=== PATIENT | female | born 1960 | race Caucasian/White ===

== ENCOUNTER → 2016-11-25 | Day surgery (SDC) | payer OTHER ==
[~2016-11-25] VITALS: Ht 162.6 cm; Wt 90.9 kg
[~2016-11-25] MED LIST: ATOR-24 PO; CITA10TA4 PO; CLON0.5T3 PO; LIDOCAINE HCL 2% 2 ML VIAL (20MG/ML) ONE; MIDAZOLAM HCL 1 MG/ML 2ML VIAL ONE; PROPOFOL IV EMULSION 10 MG/ML 20 ML VIAL IV ONE
[2016-11-25 10:08] VITALS: Ht 162.6 cm; Wt 90.9 kg
[2016-11-25 10:19] VITALS: TEMP 36.5
--- NOTE | 2016-11-25 10:19 | Endo History and Physical ---
History & Physical Date of Service: Nov 25, 2016. Chief Complaint: Hx polyp Referring Physician: Dr. Carter History of Present Illness 56 yo CF who presents for colonoscopy secondary to history of polyps. Past Surgical History Hx Cardiac Surgery: No Hx Internal Defibrillator: No Hx Pacemaker: No Hx Abdominal Surgery: No Hx of Implantable Prosthesis: No Hx Post-Op Nausea and Vomiting: No Hx Cancer Surgery: No Hx Thoracic Surgery: No Hx Orthopedic: Yes (RT SHOULDER SURGERY) Hx Urinary Tract Surgery: No Family History None Social History Smoking Status: Never Smoker Hx Substance Use: No Hx Alcohol Use: Yes (OCCASIONAL) Allergies Coded Allergies: No Known Allergies (Verified , 11/25/16) Current Medications Reported Home Medications Medications Dose Route/Sig Max Daily Dose Days Date Category Citalopram Hydrobromide 10 Mg Tab 1 Tab PO HS 11/06/16 Reported Klonopin (Clonazepam) 0.5 Mg Tab 0.5 Mg PO BID PRN 11/06/16 Reported Lipitor (Atorvastatin Calcium) 40 Mg Tab 40 Mg PO HS 11/06/16 Reported Vital Signs Weight (Kilograms): 90.91 Height (Feet): 5 Height (Inches): 4 Physical Exam General Appearance: WD/WN, no apparent distress Respiratory/Chest: Auscultation: breath sounds normal Cardiovascular: Heart Auscultation: RRR Abdomen: Bowel Sounds: normal Inspection & Palpation: soft, non-distended, no tenderness, guarding & rebound Assessment and Plan Assessment: 56 yo CF who presents for colonoscopy secondary to history of polyps. Plan: Proceed with colonoscopy.
--- NOTE | 2016-11-25 11:06 | Discharge Instructions ---
Endoscopy Patient Instructions Date / Procedure(s) Performed Nov 25, 2016. Colonoscopy Allergy Information Coded Allergies: No Known Allergies (Verified , 11/25/16) Discharge Date / Findings Nov 25, 2016. Rectal polyp Internal hemorrhoids Provider Instructions Activity Restrictions - No exercising or heavy lifting for 24 hours. - Do not drink alcohol the day of the procedure. - Do not drive a car or operate machinery until the day after the procedure. - Do not make any important decisions or sign important papers in 24 hours after the procedure. Following Day: - Return to full activity which may include returning to work/school. Diet Start your diet with liquids and light foods (jello, soup, juice, toast). Then eat your usual diet if not nauseated. Treatment For Common After Affects For mild abdominal pain, bloating, or excessive gas: - Rest - Eat lightly - Lie on right side Follow-Up Information Follow-up with Dr. Carter as scheduled Anesthesia Information What You Should Know You have had a procedure that required some medicine to reduce anxiety and discomfort. This treatment is called moderate sedation. After receiving the treatment, you may be sleepy, but you will be able to breathe on your own. The effects of the treatment may last for several hours. Follow these instructions along with Activity/Diet recommendations noted above: * Do NOT do anything where dizziness or clumsiness would be dangerous. * Rest quietly at home today, then you can be up and about tomorrow. * Have a responsible person stay with you the rest of today. * You may have had an I.V. today. If so, you may take the dressing off later today. Recommendations Call your doctor if: * Trouble breathing * Continuous vomiting for more than 24 hours * Temperature above 101 degrees * Severe abdominal pain or bloating * Pain not relieved by pain medicine ordered * There is increased drainage or redness from any incision * A large amount of rectal bleeding greater than 2-3 tablespoons. (If you had a polyp/s removed or have hemorrhoids, a small amount of blood - from the rectum is to be expected.) * You have any unanswered questions or concerns. IN THE EVENT OF A SERIOUS EMERGENCY, GO TO THE NEAREST EMERGENCY ROOM Your discharge instructions were prepared by provider Pa Kwok. Patient Instructions Signature Page Cristel Parra Patient (or Guardian) Signature/Date: I have read and understand the instructions given to me by my caregivers. Caregiver/RN/Doctor Signature/Date: The above-named patient and/or guardian has received patient instructions on this date. + Original Patient Signature Page (only) stays with chart. Please make copy for patient.
--- NOTE | 2016-11-25 11:15 | GI REPORT ---
Procedure Date: 11/25/2016 10:42 AM Procedure: Colonoscopy Indications: High risk colon cancer surveillance: Personal history of colonic polyps Medicines: Monitored Anesthesia Care Complications: No immediate complications. Estimated Blood Loss: Estimated blood loss: none. Procedure: Pre-Anesthesia Assessment: - Prior to the procedure, a History and Physical was performed, and patient medications and allergies were reviewed. The patient's tolerance of previous anesthesia was also reviewed. The risks and benefits of the procedure and the sedation options and risks were discussed with the patient. All questions were answered, and informed consent was obtained. Prior Anticoagulants: The patient has taken no previous anticoagulant or antiplatelet agents. ASA Grade Assessment: II - A patient with mild systemic disease. After reviewing the risks and benefits, the patient was deemed in satisfactory condition to undergo the procedure. After I obtained informed consent, the scope was passed under direct vision. Throughout the procedure, the patient's blood pressure, pulse, and oxygen saturations were monitored continuously. The Scope was introduced through the anus and advanced to the terminal ileum. The colonoscopy was performed without difficulty. The patient tolerated the procedure well. The quality of the bowel preparation was good. The terminal ileum, ileocecal valve, appendiceal orifice, and rectum were photographed. Findings: A 3 mm polyp was found in the rectum. The polyp was sessile. The polyp was removed with a cold snare. Resection and retrieval were complete. Non-bleeding internal hemorrhoids were found during retroflexion. The hemorrhoids were small. Impression: - One 3 mm polyp in the rectum, removed with a cold snare. Resected and retrieved. - Non-bleeding internal hemorrhoids. Recommendation: - Resume previous diet. - Continue present medications. - Repeat colonoscopy for surveillance based on pathology results. - Return to primary care physician as previously scheduled. Pa Kwok DO 11/25/2016 11:14:40 AM This report has been signed electronically. Note Initiated On: 11/25/2016 10:42 AM
[2016-11-25 11:36] VITALS: BP 125/79; PULSE 81; O2SAT 99
--- NOTE | 2016-11-25 12:10 | Anesthesiology Progress Note ---
Anesthesia Post Op Note Date & Time Nov 25, 2016 at 12:09 Vital Signs Pain Intensity: 0 Vital Signs Past 12 Hours Date Time Temp Pulse Resp B/P Pulse Ox O2 Delivery O2 Flow Rate FiO2 11/25/16 11:36 81 20 125/79 99 Room Air 11/25/16 11:19 80 20 107/52 97 Room Air 11/25/16 11:04 80 20 99/57 95 Room Air 11/25/16 10:19 36.5 82 18 125/65 97 Room Air Notes Mental Status: alert / awake / arousable Nausea / Vomiting: adequately controlled Pain: adequately controlled Airway Patency, RR, SpO2: stable & adequate BP & HR: stable & adequate Hydration State: stable & adequate Anesthetic Complications: no major complications apparent
== END | disposition home or self-care (01) ==
LOC: C.GI 10:02
PROVIDERS: ATTEND Internal Medicine
DX: Z12.11 Encounter for screening for malignant neoplasm of colon (principal); Z86.010 Personal history of colon polyps; K62.1 Rectal polyp; K64.8 Other hemorrhoids

== ENCOUNTER → 2017-02-18 | Outpatient (CLI) | payer OTHER ==
[~2017-02-18] MED LIST changes: -LIDOCAINE HCL 2% 2 ML VIAL (20MG/ML) ONE; -MIDAZOLAM HCL 1 MG/ML 2ML VIAL ONE; -PROPOFOL IV EMULSION 10 MG/ML 20 ML VIAL IV ONE
--- NOTE | 2017-02-18 15:55 | MAMMOGRAPHY REPORT ---
BILATERAL DIGITAL SCREENING MAMMOGRAM TOMOSYNTHESIS WITH CAD: 02/18/2017 CLINICAL HISTORY: Routine screening. Patient has no complaints. TECHNIQUE: Breast tomosynthesis in addition to standard 2D mammography was performed. Current study was also evaluated with a Computer Aided Detection (CAD) system. COMPARISON: Comparison is made to exams dated: 02/15/2016 mammogram, 09/13/2014 mammogram, 08/03/2013 mammogram, 08/02/2012 mammogram, 07/31/2011 mammogram, and 06/26/2010 mammogram - [facility]. BREAST COMPOSITION: The tissue of both breasts is almost entirely fatty. FINDINGS: There are stable lymph nodes projecting in each axillary region and stable intramammary ly mph nodes in the left upper outer posterior breast. No new suspicious mass, architectural distortio n or cluster of microcalcifications is seen. IMPRESSION: ACR BI-RADS CATEGORY 1: NEGATIVE There is no mammographic evidence of malignancy. A 1 year screening mammogram is recommended. The p atient will receive written notification of the results. Approximately 10% of breast cancers are not detected with mammography. A negative mammographic repor t should not delay biopsy if a clinically suggestive mass is present. Obdulia Parish M.D. ay/:02/18/2017 13:45:51 Global Project Manager: Yaz RICK)(Joanne), [facility] letter sent: Normal 1/2 BI-RADS Code: ACR BI-RADS Category 1: Negative
== END | disposition home or self-care (01) ==
LOC: C.MAMM 08:56
PROVIDERS: ATTEND Internal Medicine
DX: Z12.31 Encounter for screening mammogram for malignant neoplasm of breast (principal)

== ENCOUNTER → 2017-04-01 | Outpatient (CLI) | payer OTHER ==
[2017-04-01 12:09] LABS: BASO % 0.9 %; BASO ABS # 0.06 K/uL (0-0.2); COMPLETE YES; EOS % 1.5 %; IG% 0.2 %; LYMPH % 32.2 %; LYMPH ABS # 2.11 K/uL (1.2-3.4); MEAN CELL VOLUME 85.8 fL (80-100); MEAN CORPUSCULAR HEMOGLOBIN 27.7 pg (25-34); MEAN CORPUSCULAR HGB CONC 32.3 g/dl (32-36); MEAN PLATELET VOLUME 11.2 fL (7.4-10.4); MONO % 6.4 %; NEUT % 58.8 %; PLATELET COUNT 251 K/uL (130-400); RED BLOOD COUNT 5.13 M/uL (4.2-5.4); WHITE BLOOD COUNT 6.56 K/uL (4.8-10.8)
[2017-04-01 12:12] LABS: URINE APPEARANCE CLEAR (CLEAR); URINE BILIRUBIN NEG (NEG); URINE COLOR YELLOW; URINE NITRITE NEG (NEG); URINE SPECIFIC GRAVITY 1.012 (1.000-1.030); UROBILINOGEN NEG (NEG); ZZUR CULT IF INDIC CLEAN CATCH NO
[2017-04-01 12:14] LABS: MANUAL MICROSCOPIC REQUIRED? NO; REVIEW REQ? NO
[2017-04-01 12:33] LABS: ESTIMATED AVERAGE GLUCOSE 117 mg/dl; HA1C FLAG Normal (Normal)
[2017-04-01 13:35] LABS: ALB/GLOB RATIO 1.3 (0.9-2); ALT/SGPT 26 U/L (12-78); AST/SGOT 14 U/L (15-37); BLOOD UREA NITROGEN 20 mg/dl (7-18); BUN/CREATININE RATIO 31.3 (10-20); CARBON DIOXIDE 25 mmol/L (21-32); CHLORIDE 109 mmol/L (98-107); CREATININE 0.64 mg/dl (0.60-1.20); GLUCOSE 92 mg/dl (70-99); HDL CHOLESTEROL 48 mg/dl; SODIUM 141 mmol/L (136-145)
[2017-04-01 13:36] LABS: ALKALINE PHOSPHATASE 76 U/L (45-117); CHOLESTEROL 157 mg/dl (0-200); CHOLESTEROL/HDL RATIO 3.3; LDL CHOLESTEROL CALCULATED 89 mg/dl; TRIGLYCERIDES 98 mg/dl (0-150); VERY LOW DENSITY LIPOPROT CALC 20 mg/dl
== END | disposition home or self-care (01) ==
LOC: C.LABBFT 08:30
PROVIDERS: ATTEND Internal Medicine
DX: M85.80 Other specified disorders of bone density and structure, unspecified site (principal); D12.6 Benign neoplasm of colon, unspecified; R73.03 Prediabetes; E78.5 Hyperlipidemia, unspecified

== ENCOUNTER → 2017-06-24 | Outpatient (CLI) | payer OTHER | END | disposition home or self-care (01) | LOC: C.PAPS 15:14 | PROVIDERS: ATTEND Nurse Practitioner | DX: Z00.00 Encounter for general adult medical examination without abnormal findings (principal) ==

== ENCOUNTER → 2017-07-01 | Outpatient (CLI) | payer OTHER ==
--- NOTE | 2017-07-01 12:20 | DIAGNOSTIC IMAGING REPORT ---
TRANS VAG-FEMALE PELVIS HISTORY: Vaginal bleeding N92.0 Vaginal [id number] COMPARISON: None. FINDINGS: Uterus: Maximum dimension 7.7 cm. Myometrial in homogeneity. 9 mm uterine fibroid. Endometrial stripe: 5 mm Right ovary: Not seen presumably due to atrophy. Left ovary: Not seen presumably due to atrophy Miscellaneous:No pelvic free fluid. IMPRESSION: Mild fibroid-type uterus with a well-defined 9 mm fibroid. No large fibroids. Nonvisualization of the ovaries presumably due to atrophy. The above report was generated using voice recognition software. It may contain grammatical, syntax or spelling errors. Electronically signed by: Abundio Simon M.D. 07/01/2017 12:19 PM Dictated Date/Time: 07/01/2017 12:17 PM
--- NOTE | 2017-07-01 13:29 | DIAGNOSTIC IMAGING REPORT ---
TRANS VAG-FEMALE PELVIS HISTORY: Vaginal bleeding N92.0 Vaginal [id number] COMPARISON: None. FINDINGS: Uterus: Maximum dimension 7.7 cm. Myometrial in homogeneity. 9 mm uterine fibroid. Endometrial stripe: 5 mm Right ovary: Not seen presumably due to atrophy. Left ovary: Not seen presumably due to atrophy Miscellaneous:No pelvic free fluid. IMPRESSION: Mild fibroid-type uterus with a well-defined 9 mm fibroid. No large fibroids. Nonvisualization of the ovaries presumably due to atrophy. The above report was generated using voice recognition software. It may contain grammatical, syntax or spelling errors. Electronically signed by: Abundio Simon M.D. 07/01/2017 12:19 PM Dictated Date/Time: 07/01/2017 12:17 PM
== END | disposition home or self-care (01) ==
LOC: C.ULTR 11:32
PROVIDERS: ATTEND Nurse Practitioner
DX: N92.0 Excessive and frequent menstruation with regular cycle (principal)

== ENCOUNTER → 2017-09-09 | Outpatient (CLI) | payer OTHER ==
[2017-09-09 12:46] LABS: ESTIMATED AVERAGE GLUCOSE 114 mg/dl; HA1C FLAG Normal (Normal)
[2017-09-09 12:54] LABS: BLOOD UREA NITROGEN 13 mg/dl (7-18); CREATININE 0.63 mg/dl (0.60-1.20); GLUCOSE 97 mg/dl (70-99)
[2017-09-09 12:55] LABS: ALT/SGPT 29 U/L (12-78); BUN/CREATININE RATIO 20.2 (10-20); CALCIUM 8.8 mg/dl (8.5-10.1); CARBON DIOXIDE 24 mmol/L (21-32); CHLORIDE 109 mmol/L (98-107); CHOLESTEROL 291 mg/dl (0-200); SODIUM 139 mmol/L (136-145); TRIGLYCERIDES 251 mg/dl (0-150); VERY LOW DENSITY LIPOPROT CALC 50 mg/dl
[2017-09-09 12:58] LABS: ALB/GLOB RATIO 1.1 (0.9-2); ALKALINE PHOSPHATASE 78 U/L (45-117); AST/SGOT 18 U/L (15-37); CHOLESTEROL/HDL RATIO 6.6; HDL CHOLESTEROL 44 mg/dl; LDL CHOLESTEROL CALCULATED 197 mg/dl
== END | disposition home or self-care (01) ==
LOC: C.LAB1850 09:43
PROVIDERS: ATTEND Nurse Practitioner
DX: E78.5 Hyperlipidemia, unspecified (principal); R73.03 Prediabetes; E55.9 Vitamin D deficiency, unspecified

== ENCOUNTER → 2018-02-22 | Outpatient (CLI) | payer OTHER ==
--- NOTE | 2018-02-23 07:47 | MAMMOGRAPHY REPORT ---
BILATERAL DIGITAL SCREENING MAMMOGRAM TOMOSYNTHESIS WITH CAD: 02/22/2018 CLINICAL HISTORY: Routine screening. Patient has no complaints. TECHNIQUE: Breast tomosynthesis in addition to standard 2D mammography was performed. Current study was also evaluated with a Computer Aided Detection (CAD) system. COMPARISON: Comparison is made to exams dated: 02/18/2017 mammogram, 02/15/2016 mammogram, 09/13/2014 mammogram, 08/03/2013 mammogram, 08/02/2012 mammogram, and 07/31/2011 mammogram - [facility]. BREAST COMPOSITION: The tissue of both breasts is almost entirely fatty. FINDINGS: The parenchymal pattern is unchanged. No developing mass, architectural distortion or clus ter of suspicious microcalcifications is seen in either breast. IMPRESSION: ACR BI-RADS CATEGORY 2: BENIGN There is no mammographic evidence of malignancy. A 1 year screening mammogram is recommended. The pa tient will receive written notification of the results. Approximately 10% of breast cancers are not detected with mammography. A negative mammographic report should not delay biopsy if a clinically suggestive mass is present. Obdulia Parish M.D. ay/:02/22/2018 12:18:21 Bridge Painter: Megan Nair, [facility] letter sent: Normal 1/2 BI-RADS Code: ACR BI-RADS Category 2: Benign
== END | disposition home or self-care (01) ==
LOC: C.MAMM 08:50
PROVIDERS: ATTEND Internal Medicine
DX: Z12.31 Encounter for screening mammogram for malignant neoplasm of breast (principal)

== ENCOUNTER → 2018-03-09 | Outpatient (CLI) | payer OTHER ==
[2018-03-09 11:31] LABS: HEMOGLOBIN A1C 5.1 % (4.5-5.6)
[2018-03-09 12:11] LABS: ALBUMIN 3.7 gm/dl (3.4-5.0); ALKALINE PHOSPHATASE 81 U/L (45-117); ALT/SGPT 39 U/L (12-78); AST/SGOT 24 U/L (15-37); BLOOD UREA NITROGEN 18 mg/dl (7-18); CALCIUM 8.7 mg/dl (8.5-10.1); CARBON DIOXIDE 26 mmol/L (21-32); CHOLESTEROL 170 mg/dl (0-200); CREATININE 0.71 mg/dl (0.60-1.20); GLUCOSE 94 mg/dl (70-99); SODIUM 139 mmol/L (136-145); TOTAL PROTEIN 7.3 gm/dl (6.4-8.2)
[2018-03-09 12:13] LABS: LDL CHOLESTEROL CALCULATED 105 mg/dl
== END | disposition home or self-care (01) ==
LOC: C.LAB1850 09:12
PROVIDERS: ATTEND Internal Medicine
DX: R73.03 Prediabetes (principal); E78.5 Hyperlipidemia, unspecified; E55.9 Vitamin D deficiency, unspecified

== ENCOUNTER → 2018-06-30 | Outpatient (CLI) | payer OTHER ==
[~2018-06-30] MED LIST changes: -CLON0.5T3 PO; +KLN/5 PO
== END | disposition home or self-care (01) ==
LOC: C.PAPS 13:37
PROVIDERS: ATTEND Nurse Practitioner
DX: Z12.4 Encounter for screening for malignant neoplasm of cervix (principal)

== ENCOUNTER 2023-04-01 10:50 | Observation (INO) ==
[2023-04-01 12:20] LABS: Basophils # (auto) 0.05 K/uL (0-0.2); Basophils % (auto) 0.8 %; Eosinophils # (auto) 0.09 K/uL (0-0.50); Eosinophils % (auto) 1.4 %; Hematocrit (blood only) 41.1 % (37.0-47.0); Immature Granulocytes # (auto) 0.02 K/uL (0.01-0.20); Immature Granulocytes % (auto) 0.3 %; Lymphocytes # (auto) 2.07 K/uL (1.2-3.4); Lymphocytes % (auto) 33.1 %; Mean Corpuscular Hemoglobin 28.3 pg (25.0-34.0); Mean Corpuscular Hgb Conc 34.1 g/dL (32.0-36.0); Mean Corpuscular Volume 83.2 fL (80.0-100.0); Mean Platelet Volume 10.7 fL (9.4-12.4); Monocytes # (auto) 0.31 K/uL (0.11-0.59); Neutrophils # (auto) 3.72 K/uL (1.40-6.50); Neutrophils % (auto) 59.4 %; Platelet Count 247 K/uL (130-400); RDW Coefficient of Variation 12.6 % (11.5-14.5); Red Blood Count 4.94 M/uL (4.20-5.40); White Blood Count 6.26 K/ul (4.8-10.8)
[2023-04-01] MEDS ORDERED: ASPIRIN CHEW 324 MG PO STA (12:33)
--- NOTE | 2023-04-01 12:33 | Emergency Department Note ---
Impression & Plan Left sided numbness, Palpitations, Stroke-like symptoms ED Provider Note NAME: EDITA SIEGEL AGE: 62 SEX: F : 1960 ARRIVES VIA: Walk-In INFORMANT: [Patient] ED PROVIDER(S): [Murtaza Jones MD] CHIEF COMPLAINT: Palpitations, extremity numbness HISTORY OF PRESENT ILLNESS: The patient is a 62-year-old female who presents with palpitations that have been ongoing for years but worsening lately. She has seen cardiology. The patient was told to restart her cholesterol meds. The patient states that it feels like her heart skips beats. She feels anxious when this happens. Last evening, her left face, left arm and left leg were numb, this has improved today but she thinks her left face is still slightly numb. There is no chest pain, there is no shortness of breath, there has been no cough, cold or congestion. Patient states that she has not had urinary complaints. She does not currently have a headache. She does feel a little dizzy. Because of the numbness coupled with the palpitations, she presents for evaluation. Of note, patient has a strong family history of coronary disease. She is scheduled for a stress test in the near future PMHx/PSHx: See Below SOCIAL HISTORY: See Below. PHYSICAL EXAM: GENERAL: Patient is in no acute distress. HEENT: No acute trauma, normocephalic atraumatic, mucous membranes moist, no nasal congestion. NECK: No stridor, no adenopathy, no meningismus, trachea is midline. No bruits heard. LUNGS: Clear to auscultation bilaterally, no wheeze, no rhonchi, breath sounds equal. HEART: Without murmurs gallops or rubs, regular rate and rhythm. ABDOMEN: Soft, nontender, bowel sounds positive, no peritonitis. EXTREMITIES: No cyanosis or edema, full range of motion of all the joints without pain or difficulty, no signs for acute trauma. NEUROLOGIC: Oriented x 3, no acute motor or sensory deficits, no focal weakness. No speech slur or facial droop, no extremity drift or cerebellar dysfunction. Excellent historian. SKIN: No rash, no jaundice, no diaphoresis. DIFFERENTIAL DIAGNOSIS: TIA, stroke, electrolyte imbalance, dysrhythmia, A-fib or a flutter, anemia, anxiety, among others. EMERGENCY DEPARTMENT COURSE/PROCEDURES: Prior/Outside records reviewed: None. ECG per my interpretation: Indication was palpitations. The ECG shows a normal sinus rhythm with a rate of 83. There is some nonspecific ST change diffusely. There is no ST elevation, no PVCs. The QTc is 404. Continuous Cardiac Monitoring per my interpretation: An order was placed for continuous cardiac monitoring. The monitor shows a rate of 84 with normal sinus rhythm. MEDICAL DECISION MAKING: There is no leukocytosis or concerning anemia. There is a normal platelet count. No renal failure or significant electrolyte abnormality. No concerning liver enzyme elevation. The patient appeared to be in a euthyroid state. ECG s howed a normal sinus rhythm, no dysrhythmia or ischemia. Cardiac enzyme testing x1 is not consistent with acute cardiac injury. Urinalysis does not show hematuria or infection. COVID test returned negative. Chest x-ray did not show cardiomegaly or mediastinal widening per my review. There was no CHF. Brain CT showed no acute bleed or mass effect. On exam, the patient did not have any focal neurologic findings. She complained of some persistent subtle left facial weakness. The patient was given oral aspirin for stroke prevention. Patient presents with some left-sided numbness which has improved since last night. She is certainly out of the window for any tPA or TNK. She also compl ains of palpitations. She does have some cardiac risk factors. Given the numbness, given the palpitations, I do think further stroke work- up/cardiac work-up is warranted. I did speak with the patient and case management, the on-call hospitalist was consulted. DISPOSITION: Patient's presentation and findings warrant a hospital stay. Past Med/Surg History Medical History Anxiety Depression GERD (gastroesophageal reflux disease) History of colon polyps Hyperlipidemia Obesity Palpitations Surgical History History of colonoscopy History of esophagogastroduodenoscopy (EGD) History of tooth extraction Hx of repair of right rotator cuff Family History Mother Family history of reaction to anesthesia difficulty waking and low oxygen level with EGD procedure Coronary heart disease Sister Family history of diabetes mellitus Grandmother (Paternal) Family history of diabetes mellitus Father Sudden Brother Coronary heart disease Other Dyslipidemia Hypertension Social History Smoking Status: Never smoker Second Hand Exposure: Yes (parents smoked); Do You Dip or Chew Tobacco: No; Hx Alcohol Use: Yes Alcohol type: wine Alcohol Intake Frequency: Monthly or Less Hx Substance Use: No Preferred Language: Frisian Communication Ability: Effective Weight Guesser Required: No Beliefs That Will Affect Care: None Current Living Situation: Spouse and Family Current Living Situation Comment: Lives with and daughter Feels Safe at Home: Yes Assistive Devices: None Allergies Allergies Allergy/AdvReac Type Severity Reaction Status Date / Time bee venom protein (honey bee) Allergy Severe Anaphylaxis Verified 04/01/23 14:10 Home Meds Home Medications Medication Instructions Recorded Confirmed epinephrine 0.3 mg/0.3 mL 0.3 mg IM DIRECTED PRN Allergic 10/10/20 04/01/23 injection, auto-injector (EpiPen) Reaction pantoprazole 40 mg tablet,delayed 40 mg PO QAM 10/10/20 04/01/23 release diclofenac sodium 1 % topical gel 1 ea topical QID PRN Pain 04/01/23 04/01/23 ezetimibe 10 mg tablet 10 mg PO QAM 04/01/23 04/01/23 famotidine 20 mg tablet 20 mg PO BID 04/01/23 04/01/23 fluoxetine 10 mg capsule 10 mg PO QAM 04/01/23 04/01/23 fluticasone propionate 50 2 spray intranasal DAILY PRN 04/01/23 04/01/23 mcg/actuation nasal allergies spray,suspension (Flonase Allergy Relief) meclizine 25 mg tablet 25 mg PO TID PRN Dizziness 04/01/23 04/01/23 rosuvastatin 20 mg tablet 20 mg PO QAM 04/01/23 04/01/23 Results & Data (ED) Vital Signs Vital Signs - 24 hr 04/01/23 10:56 04/01/23 11:48 04/01/23 11:50 Temperature 36.6 C Temperature Source Temporal Artery Scan Pulse Rate 91 H 80 84 Respiratory Rate 18 20 Respiratory Effort / Characteristics Non-Labored Respiratory Depth Normal Blood Pressure 154/77 H 137/91 Blood Pressure Mean 102 106 Pulse Oximetry 97 97 Oxygen Delivery Method Room Air Room Air Sepsis Recent Fever Within 48 Hours No Sepsis New/Unexplained Change in Mental Status No Sepsis Action Taken by Nursing No Action Required 04/01/23 11:52 Temperature 36.7 C Temperature Source Oral Pulse Rate Respiratory Rate Respiratory Effort / Characteristics Respiratory Depth Blood Pressure Blood Pressure Mean Pulse Oximetry Oxygen Delivery Method Sepsis Recent Fever Within 48 Hours Sepsis New/Unexplained Change in Mental Status Sepsis Action Taken by [facility] Medications Current Medication List: was personally reviewed by me Laboratory Data Attestation: I reviewed the patient's lab results. 04/01/23 11:20 04/01/23 11:20 Lab Results 04/01/23 04/01/23 04/01/23 Range/Units 11:20 11:20 11:20 WBC 6.26 (4.8-10.8) K/ul RBC 4.94 (4.20-5.40) M/uL Hgb 14.0 (12.0-16.0) g/dl Hct 41.1 (37.0-47.0) % MCV 83.2 (80.0-100.0) fL MCH 28.3 (25.0-34.0) pg MCHC 34.1 (32.0-36.0) g/dL RDW Std Deviation 38.0 (36.4-46.3) fL RDW Coeff of Vikcie 12.6 (11.5-14.5) % Plt Count 247 (130-400) K/uL MPV 10.7 (9.4-12.4) fL Immature Gran % (Auto) 0.3 % Neut % (Auto) 59.4 % Lymph % (Auto) 33.1 % [place] % (Auto) 5.0 % Eos % (Auto) 1.4 % Baso % (Auto) 0.8 % Neut # (Auto) 3.72 (1.40-6.50) K/uL Lymph # (Auto) 2.07 (1.2-3.4) K/uL [place] # (Auto) 0.31 (0.11-0.59) K/uL Eos # (Auto) 0.09 (0-0.50) K/uL Baso # (Auto) 0.05 (0-0.2) K/uL Immature Gran # (Auto) 0.02 (0.01-0.20) K/uL Sodium 140 (136-145) mmol/L Potassium 3.8 (3.5-5.1) mmol/L Chloride 107 (98-107) mmol/L Carbon Dioxide 25 (21-32) mmol/L Anion Gap 8 (3-11) BUN 13 (6-23) mg/dl Creatinine 0.68 (0.6-1.2) mg/dl Est Cr Clr Drug Dosing 94.4 ml/min Est GFR ( Amer) 108.7 ml/min Est GFR (Non-Af Amer) 93.7 ml/min BUN/Creatinine Ratio 19.1 (10-20) Glucose 119 H (70-99(Fasting)) mg/dl Calcium 9.2 (8.6-10.3) mg/dl Magnesium 1.9 (1.7-2.4) mg/dl Total Bilirubin 0.5 (0.2-1.0) mg/dl AST 13 (13-39) U/L ALT 16 (7-52) U/L Alkaline Phosphatase 75 (34-104) U/L Troponin I High Sens < 2.3 (0-14) pg/ml Total Protein 6.7 (6.0-8.3) gm/dl Albumin 4.1 (3.4-5.0) gm/dl Globulin 2.6 (2.5-4.0) gm/dl Albumin/Globulin Ratio 1.6 (0.9-2) TSH 2.249 (0.300-4.500) uIu/ml Urine Color Urine Appearance (Clear) Urine pH (4.5-7.5) Ur Specific [place] (1.000-1.030) Urine Protein (Negative) Urine Glucose (UA) (Negative) Urine Ketones (Negative) Urine Blood (Negative) Urine Nitrite (Negative) Urine Bilirubin (Negative) Urine Urobilinogen (Negative) Ur Leukocyte Esterase (Negative) SARS-CoV-2, RNA, NAAT (NEGATIVE) 04/01/23 04/01/23 Range/Units 12:15 12:40 WBC (4.8-10.8) K/ul RBC (4.20-5.40) M/uL Hgb (12.0-16.0) g/dl Hct (37.0-47.0) % MCV (80.0-100.0) fL MCH (25.0-34.0) pg MCHC (32.0-36.0) g/dL RDW Std Deviation (36.4-46.3) fL RDW Coeff of [place]ickie (11.5-14.5) % Plt Count (130-400) K/uL MPV (9.4-12.4) fL Immature Gran % (Auto) % Neut % (Auto) % Lymph % (Auto) % [place] % (Auto) % Eos % (Auto) % Baso % (Auto) % Neut # (Auto) (1.40-6.50) K/uL Lymph # (Auto) (1.2-3.4) K/uL [place] # (Auto) (0.11-0.59) K/uL Eos # (Auto) (0-0.50) K/uL Baso # (Auto) (0-0.2) K/uL Immature Gran # (Auto) (0.01-0.20) K/uL Sodium (136-145) mmol/L Potassium (3.5-5.1) mmol/L Chloride (98-107) mmol/L Carbon Dioxide (21-32) mmol/L Anion Gap (3-11) BUN (6-23) mg/dl Creatinine (0.6-1.2) mg/dl Est Cr Clr Drug Dosing ml/min Est GFR ( Amer) ml/min Est GFR (Non-Af Amer) ml/min BUN/Creatinine Ratio (10-20) Glucose (70-99(Fasting)) mg/dl Calcium (8.6-10.3) mg/dl Magnesium (1.7-2.4) mg/dl Total Bilirubin (0.2-1.0) mg/dl AST (13-39) U/L ALT (7-52) U/L Alkaline Phosphatase (34-104) U/L Troponin I High Sens (0-14) pg/ml Total Protein (6.0-8.3) gm/dl Albumin (3.4-5.0) gm/dl Globulin (2.5-4.0) gm/dl Albumin/Globulin Ratio (0.9-2) TSH (0.300-4.500) uIu/ml Urine Color Yellow Urine Appearance Clear (Clear) Urine pH 6.5 (4.5-7.5) Ur Specific [place] 1.015 (1.000-1.030) Urine Protein Negative (Negative) Urine Glucose (UA) Negative (Negative) Urine Ketones Negative (Negative) Urine Blood Negative (Negative) Urine Nitrite Negative (Negative) Urine Bilirubin Negative (Negative) Urine Urobilinogen Negative (Negative) Ur Leukocyte Esterase Negative (Negative) SARS-CoV-2, RNA, NAAT NEGATIVE (NEGATIVE) Administered Medications Discontinued Medications Aspirin (Aspirin Chew 324 Mg) 324 mg PO NOW STA Stop: 04/01/23 12:34 Last Admin: 04/01/23 12:38 Dose: 324 mg Documented By: S Imaging Data Radiologist's Impression: Chest X-Ray 04/01/23 12:02 XR chest 1V portable CLINICAL HISTORY: weakness TECHNIQUE: Single frontal radiograph of the chest was obtained. Comparison: Comparison is made to chest radiograph 02/22/2023 FINDINGS: No lines and tubes are seen. The cardiomediastinal silhouette is normal. The lungs are clear. No evidence of pleural effusion or pneumothorax. IMPRESSION: No acute chest disease. ACT 112: Negative or not required by law. Electronically signed by: Antoine Berger M.D. 04/01/2023 12:[address] 04/01/23 12:02 CT head/brain wo con CLINICAL HISTORY: 62 years-old Female with extrem numbness. Acute strokelike symptoms TECHNIQUE: Multiple axial CT images of the head were obtained without contrast. A dose lowering technique was utilized adhering to the principles of ALARA. CT DOSE: 547.75 mGy.cm COMPARISON: Head CT 10/10/2020 FINDINGS: No acute intracranial hemorrhage, midline shift, intracranial mass, hydrocephalus, territorial ischemia or abnormal extra-axial collection. Involutional changes with mild chronic microvascular ischemic disease. The calvarium is intact. Chronic polypoid mucosal thickening of the left maxillary sinus. Mastoid air cells are clear. Hyperostosis frontalis interna. Unremarkable soft tissues. IMPRESSION: No acute intracranial abnormality. ACT 112: Negative or not required by law. The above report was generated using voice recognition software. It may contain grammatical, syntax or spelling errors. Electronically signed by: Danie Bass M.D. 04/01/2023 1:11 PM Discharge Plan Visit Data Chief Complaint: Arrhythmia/Palpitations Stated Complaint: PALPITATION,FACE NUMB,LEG NUMB, ED Provider: Murtaza Jones Discharge Problem: Left sided numbness, Palpitations, Stroke-like symptoms Patient Disposition: Admitted As Inpatient Condition: Good Forms Stand Alone Forms: My [facility] Prescriptions Prescriptions: No Action epinephrine [EpiPen] 0.3 mg/0.3 mL Auto-Injector 0.3 mg IM DIRECTED PRN (Reason: Allergic Reaction) pantoprazole 40 mg tablet,delayed release (DR/EC) 40 mg PO QAM Rx Instructions: TAKE 1 TABLET BY MOUTH EVERY MORNING famotidine 20 mg Tablet 20 mg PO BID meclizine 25 mg Tablet 25 mg PO TID PRN (Reason: Dizziness) fluoxetine 10 mg capsule 10 mg PO QAM Rx Instructions: New. Did not start yet. fluticasone propionate [Flonase Allergy Relief] 50 mcg/actuation [place],Suspension 2 spray INTRANASAL DAILY PRN (Reason: allergies) Rx Instructions: administer into each nostril ezetimibe 10 mg tablet 10 mg PO QAM Rx Instructions: filled 03/26/2023 but did not start yet. rosuvastatin 20 mg tablet 20 mg PO QAM diclofenac sodium 1 % gel 1 ea TOPICAL QID PRN (Reason: Pain) Referrals Referrals: Umesh Major DO [Primary Care Provider] -
--- NOTE | 2023-04-01 12:38 | XRay Report ---
XR chest 1V portable CLINICAL HISTORY: weakness TECHNIQUE: Single frontal radiograph of the chest was obtained. Comparison: Comparison is made to chest radiograph 02/22/2023 FINDINGS: No lines and tubes are seen. The cardiomediastinal silhouette is normal. The lungs are clear. No evid ence of pleural effusion or pneumothorax. IMPRESSION: No acute chest disease. ACT 112: Negative or not required by law. Electronically signed by: Antoine Berger M.D. 04/01/2023 12:37 PM
[2023-04-01 12:40] LABS: Albumin Level 4.1 gm/dl (3.4-5.0); Anion Gap 8 (3-11); Bilirubin,Total 0.5 mg/dl (0.2-1.0); Calcium 9.2 mg/dl (8.6-10.3); Carbon Dioxide 25 mmol/L (21-32); Chloride 107 mmol/L (98-107); Magnesium 1.9 mg/dl (1.7-2.4); Potassium 3.8 mmol/L (3.5-5.1); Sodium 140 mmol/L (136-145)
[2023-04-01 12:46] LABS: Alanine Aminotransferase 16 U/L (7-52); Albumin Globulin Ratio 1.6 (0.9-2); Alkaline Phosphatase 75 U/L (34-104); Aspartate Aminotransferase 13 U/L (13-39); BUN Creatinine Ratio 19.1 (10-20); Blood Urea Nitrogen 13 mg/dl (6-23); Creatinine Clr Calc Pharmacy 94.4 ml/min; Est GFR (African American) 108.7 ml/min; Est GFR (Non-African American) 93.7 ml/min; Globulin 2.6 gm/dl (2.5-4.0); Glucose 119 mg/dl (70-99(Fasting)); Total Protein 6.7 gm/dl (6.0-8.3)
[2023-04-01 12:49] LABS: Troponin I High Sensitivity < 2.3 pg/ml (0-14)
[2023-04-01 13:09] LABS: Appearance Urine Clear (Clear); Bilirubin Urine Negative (Negative); Blood Urine Negative (Negative); Color Urine Yellow; Glucose Urine UA Negative (Negative); Ketones Urine Negative (Negative); Leukocyte Esterase Urine Negative (Negative); Nitrite Urine Negative (Negative); Protein Urine Negative (Negative); Specific Gravity Urine 1.015 (1.000-1.030); Urobilinogen Urine Negative (Negative); pH Urine 6.5 (4.5-7.5)
--- NOTE | 2023-04-01 13:12 | CT Scan Report ---
CT head/brain wo con CLINICAL HISTORY: 62 years-old Female with extrem numbness. Acute strokelike symptoms TECHNIQUE: Multiple axial CT images of the head were obtained without contrast. A dose lowering tech nique was utilized adhering to the principles of ALARA. CT DOSE: 547.75 mGy.cm COMPARISON: Head CT 10/10/2020 FINDINGS: No acute intracranial hemorrhage, midline shift, intracranial mass, hydrocephalus, territorial ischem ia or abnormal extra-axial collection. Involutional changes with mild chronic microvascular ischemic disease. The calvarium is intact. Chronic polypoid mucosal thickening of the left maxillary sinus. Mastoid ai r cells are clear. Hyperostosis frontalis interna. Unremarkable soft tissues. IMPRESSION: No acute intracranial abnormality. ACT 112: Negative or not required by law. The above report was generated using voice recognition software. It may contain grammatical, syntax o r spelling errors. Electronically signed by: Danie Bass M.D. 04/01/2023 1:11 PM
--- NOTE | 2023-04-01 13:35 | History & Physical Report ---
Date of Service April 01, 2023 Assessment & Plan (1) Stroke-like symptoms: Plan: Patient is 62-year-old female with PMH dyslipidemia, anxiety, depression, GERD, obesity presented to ER with complaint of left-sided facial tingling and LUE tingling, LLE heaviness that started last night around 2:30 AM. Left-sided headache yesterday. In ER vitals stable. No significant electrolyte abnormality. High sensitivity troponin negative. CT Head: No acute intracranial abnormality CXR: No acute chest disease In ER given 324mg aspirin No current symptoms DDX: TIA, CVA, atypical migraine, anxiety Tele to monitor for arrhythmias Lipids, A1c in am CBC, BMP in am MRI brain Echo Carotid doppler Aspiration precautions PT/OT consult Continue rosuvastatin Aspirin daily Neurology consult (2) Palpitations: Plan: History intermittent palpitations EKG: sinus rhythm, nonspecific ST changes Follows outpatient [facility] cardiology Recent event monitor that showed predominant underlying rhythm was sinus rhythm with occasional ventricular ectopy and two SVT runs occurred, with the longest run lasting 9 beats. Denies any current palpitations. Monitor on telemetry Outpatient nuclear stress test scheduled for 05/29/2023 Cardiology consult (3) Hyperlipidemia: Plan: Outpatient lipid panel 03/20/2022 Total cholesterol: 287, HDL: 42, LDL: 214, triglycerides: 156 Recently restarted on rosuvastatin. H/O myalgias from rosuvastatin in past. (4) Anxiety: (5) Depression: Plan: Followed by outpatient psychiatry Recently prescribed fluoxetine however has not started yet (6) GERD (gastroesophageal reflux disease): Plan: Continue PPI, Pepcid (7) Obesity: Plan: BMI: 34.9 Lifestyle modifications recommended DVT Prophylaxis SCDs Full Code as per discussion with pt Follows with Dr Major for routine care Pt was seen and care coordinated with Dr Montez. See addendum I spent a total of 85 minutes reviewing notes, outpatient records, labs, medication, coordinating, documenting and providing care for this patient excluding time spent in the performance of separately billed services. History of Present Illness Chief Complaint: Left sided tingling Primary Care Provider: Umesh Major DO Patient is 62-year-old female with PMH dyslipidemia, anxiety, depression, GERD, obesity presented to ER with complaint of left-sided tingling that started last night. Patient reports ongoing intermittent palpitations. She reports they occur approximately once a day. States has palpitations with associated sharp mid chest pain and lightheadedness, nausea. States palpitations started last night around 11 PM with associated lightheadedness and nausea. She states she went to bed to try and rest. Patient states she stayed up all night watching the clock because she was fearful if she went to sleep she may . States around 2:30 AM started with tingling sensation to left side of face, left arm. Also complains of "heaviness" to left leg. She states she was able to walk without difficulty. Did not notice any left arm weakness. States fell asleep around 6 AM today. She reports when she woke up tingling sensation was pretty much resolved. Here in ER patient reports complete resolution of tingling to left face, arm and leg. Patient reports dull left-sided headache all day yesterday. Denies any current palpitations. Seen by cardiology 03/26/2023 for palpitations. Outpatient chart reviewed and patient had event monitor that showed predominant underlying rhythm was sinus rhythm with occasional ventricular ectopy and two SVT runs occurred, with the longest run lasting 9 beats. Patient was to be set up with nuclear stress test. Denies fever/chills, diaphoresis, diarrhea, constipation, syncope, vision changes, speech changes, facial drooping, neck pain, orthopnea, cough, sore throat, otalgia, rhinorrhea, abdominal pain, extremity weakness, extremity edema, rashes, urinary symptoms. Allergies Allergy/AdvReac Type Severity Reaction Status Date / Time bee venom protein (honey bee) Allergy Severe Anaphylaxis Verified 04/01/23 14:10 rosuvastatin AdvReac Unknown muscle Uncoded 04/01/23 20:02 aches Home Medications Medication Instructions Recorded Confirmed Type epinephrine 0.3 mg/0.3 mL 0.3 mg IM DIRECTED PRN Allergic 10/10/20 04/01/23 History injection, auto-injector (EpiPen) Reaction pantoprazole 40 mg tablet,delayed 40 mg PO QAM 10/10/20 04/01/23 History release diclofenac sodium 1 % topical gel 1 ea topical QID PRN Pain 04/01/23 04/01/23 History ezetimibe 10 mg tablet 10 mg PO QAM 04/01/23 04/01/23 History famotidine 20 mg tablet 20 mg PO BID 04/01/23 04/01/23 History fluoxetine 10 mg capsule 10 mg PO QAM 04/01/23 04/01/23 History fluticasone propionate 50 2 spray intranasal DAILY PRN 04/01/23 04/01/23 History mcg/actuation nasal allergies spray,suspension (Flonase Allergy Relief) meclizine 25 mg tablet 25 mg PO TID PRN Dizziness 04/01/23 04/01/23 History rosuvastatin 20 mg tablet 20 mg PO QAM 04/01/23 04/01/23 History Past Med/Surg History Medical History Anxiety Depression GERD (gastroesophageal reflux disease) History of colon polyps Hyperlipidemia Obesity Palpitations Surgical History History of colonoscopy History of esophagogastroduodenoscopy (EGD) History of tooth extraction Hx of repair of right rotator cuff Family History Mother Family history of reaction to anesthesia difficulty waking and low oxygen level with EGD procedure Coronary heart disease Sister Family history of diabetes mellitus Grandmother (Paternal) Family history of diabetes mellitus Father Sudden Brother Coronary heart disease Other Dyslipidemia Hypertension Social History Smoking Status: Never smoker Second Hand Exposure: Yes (parents smoked); Do You Dip or Chew Tobacco: No; Hx Alcohol Use: No Hx Substance Use: No Preferred Language: Korean Communication Ability: Effective Accounting Teacher Required: No Beliefs That Will Affect Care: None Current Living Situation: Spouse Current Living Situation Comment: Lives with and daughter Feels Safe at Home: Yes Assistive Devices: None Review of Systems Review of Systems: All systems reviewed & are unremarkable except as noted in HPI & below Physical Exam Physical Exam: General: no distress, overweight Head: normocephalic, atraumatic Eyes: PERRL, EOM's intact, conjunctiva non-injected, anicteric ENT: normal inspection external ears, nose, mucous membranes moist Neck: supple, trachea midline Lungs: clear, no respiratory distress, no wheezing/rhonchi/rales CV: RRR, no murmur, no JVD, no pretibial edema Abd: normal BS, soft, non-tender Ext: no cyanosis, no calf tenderness Neuro: A&O x 3, slightly anxious affect. Visual redyd intact. PERRL, EOMs intact. No nystagmus, Facial sensation is intact and symmetric, The face is strong and symmetric, Hearing grossly intact, Soft palate elevates, symmetrically, no dysarthria, Shoulder shrug intact, Tongue is midline, normal movement, no fasciculations. Strength 5/5 throughout bilateral upper and lower extremities Skin: warm, dry Results & Data Results & Data Vital Signs (Past 12 Hours) Vital Signs Temp Pulse Resp BP Pulse Ox O2 Del Method 04/01/23 11:52 36.7 C 04/01/23 11:50 84 20 137/91 97 Room Air 04/01/23 11:48 80 04/01/23 10:56 36.6 C 91 H 18 154/77 H 97 Room Air Laboratory Results Short CBC 04/01/23 Range/Units 11:20 WBC 6.26 (4.8-10.8) K/ul Hgb 14.0 (12.0-16.0) g/dl Hct 41.1 (37.0-47.0) % Plt Count 247 (130-400) K/uL BMP 04/01/23 11:20 Sodium 140 Potassium 3.8 Chloride 107 Carbon Dioxide 25 BUN 13 Creatinine 0.68 Glucose 119 H Calcium 9.2 Liver Function 04/01/23 Range/Units 11:20 Total Bilirubin 0.5 (0.2-1.0) mg/dl AST 13 (13-39) U/L ALT 16 (7-52) U/L Alkaline Phosphatase 75 (34-104) U/L Albumin 4.1 (3.4-5.0) gm/dl Urine 04/01/23 Range/Units 12:40 Urine Color Yellow Urine Appearance Clear (Clear) Urine pH 6.5 (4.5-7.5) Ur Specific [place] 1.015 (1.000-1.030) Urine Protein Negative (Negative) Urine Glucose (UA) Negative (Negative) Diagnostic Findings Chest X-Ray 04/01/23 12:02 XR chest 1V portable CLINICAL HISTORY: weakness TECHNIQUE: Single frontal radiograph of the chest was obtained. Comparison: Comparison is made to chest radiograph 02/22/2023 FINDINGS: No lines and tubes are seen. The cardiomediastinal silhouette is normal. The lungs are clear. No evidence of pleural effusion or pneumothorax. IMPRESSION: No acute chest disease. ACT 112: Negative or not required by law. Electronically signed by: Antoine Berger M.D. 04/01/2023 12:[address] 04/01/23 12:02 CT head/brain wo con CLINICAL HISTORY: 62 years-old Female with extrem numbness. Acute strokelike symptoms TECHNIQUE: Multiple axial CT images of the head were obtained without contrast. A dose lowering technique was utilized adhering to the principles of ALARA. CT DOSE: 547.75 mGy.cm COMPARISON: Head CT 10/10/2020 FINDINGS: No acute intracranial hemorrhage, midline shift, intracranial mass, hydrocephalus, territorial ischemia or abnormal extra-axial collection. Involutional changes with mild chronic microvascular ischemic disease. The calvarium is intact. Chronic polypoid mucosal thickening of the left maxillary sinus. Mastoid air cells are clear. Hyperostosis frontalis interna. Unremarkable soft tissues. IMPRESSION: No acute intracranial abnormality. ACT 112: Negative or not required by law. The above report was generated using voice recognition software. It may contain grammatical, syntax or spelling errors. Electronically signed by: Danie Bass M.D. 04/01/2023 1:11 PM ECG Rate (beats per minute): 83 Rhythm: sinus rhythm Findings: + nonspecific-ST abn Supervising Physician Co-Signing Physician Notes I have seen and examined the patient and have discussed the case with the provider above. I agree with the assessment and plan as stated with the following exceptions. The patient is a 62-year-old female with a history of uncontrolled anxiety who presents with palpitations later associated with left sided weakness and numbness. She reports a history of drinking excessive coffee and has recently cut down by 50% to try and improve palpitations. She reports of this ongoing for approximately 7 years, and recently has been seen by cardiology as outpatient. She underwent an event monitor which revealed occasional PVCs and SVT with predominantly sinus rhythm. She was also placed on rosuvastatin which in the past has been problematic causing muscle aches. She does report muscle aches have been worse this past week. She gave multiple examples of recent instances that caused her heightened anxiety, and she has not been successful in connecting with a therapist as outpatient today. She was reportedly placed on fluoxetine but has not started this yet. We will continue to hold for now. Yesterday, she reports going to a tea alliance party with her granddaughter and drinking a caffeinated tea that caused her to start having palpitations afterwards. She also reports that in the evening when her palpitations came back, the palpitations came first followed by a twinge of chest pain and several hours of insomnia because of uncontrolled anxiety. She states that the left-sided weakness and numbness came after she was very anxious and upset about the palpitations and chest discomfort. She denies any other strokelike symptoms and currently these symptoms have all resolved. On physical exam she has no gross focal neurologic deficit. Cranial exams 2 through 12 are grossly intact. She is ambulatory. She is mentating clearly and answering questions correctly. She is oriented. She is in no acute distress and is obese. She is speaking in full sentences with no respiratory distress. Heart and lung exams within normal limits. She is euvolemic. Abdominal exam is normal. Work-up includes a CBC and CHEM panel that are normal. LFTs are normal. Highly sensitive troponin is negative and thyroid function is normal. Urinalysis rev eals no evidence of infection and COVID test is normal. Head CT revealed no acute intracranial abnormality. A chest x-ray revealed no acute chest disease. A carotid ultrasound revealed no hemodynamically significant stenosis or significant atherosclerotic plaquing and a brain MRI is pending. 1. Palpitations 2. Uncontrolled anxiety 3. Strokelike symptoms-resolved, possible TIA Symptoms of palpitations appear to have led to anxiety and subsequent numbness and weakness of her left side. ABCD 2 score indicates she is high risk for stroke in the next 48 hours if this was a TIA. Agree with hospitalization and telemetry monitoring. Symptoms are currently resolved. Agree with aspirin and holding rosuvastatin given the return of muscle aches with rechallenge. Continue Zetia. Will add DAPT for secondary prevention of TIA. Appreciate neuro recommendations. We will follow MRI reading. Appreciate cardiology assistance with palpitations. Patient was instructed to avoid caffeine to see if this improves her symptoms. Defer to cardiology to discuss treatment options based on recent event monitor study. DO Tc
[2023-04-01] MEDS ORDERED: POLYETHYLENE (MIRALAX) 17 GM PACK PO PRN (16:06)
[2023-04-01] MEDS ORDERED: ACETAMINOPHEN 325 MG TAB PO PRN (16:06)
[2023-04-01] MEDS ORDERED: PHARMACIST DISCHARGE MED REC CONSULT PRN (16:06)
--- NOTE | 2023-04-01 18:00 | Ultrasound Report ---
US carotid doppler BI CLINICAL HISTORY: 62 years-old Female with stroke like symptoms. COMPARISON: Head CT of same day TECHNIQUE: Multiple real time sonographic images of the carotid bifurcations were obtained assessing krueger scale, color Doppler and spectral wave form appearance FINDINGS: RIGHT CAROTID: The peak systolic velocity measured within the right ICA is 64 cm/sec. The end diast olic velocity measured 19 cm/sec. The ICA to CCA ratio measured 0.57 which correlates with a stenosi s of 0-50%. There is mild atherosclerotic plaque of the right common and internal carotid arteries. LEFT CAROTID: The peak systolic velocity measured within the left ICA is 69 cm/sec. The end diastol ic velocity measured 20 cm/sec. The ICA to CCA ratio measured 0.61 which correlates with a stenosis o f 0-50%. There is mild atherosclerotic plaque of the left common and internal carotid arteries. There is normal antegrade vertebral flow bilaterally. IMPRESSION: 1. No hemodynamically significant stenosis or significant atherosclerotic plaquing. 2. Normal antegrade vertebral flow bilaterally. ACT 112: Negative or not required by law. The above report was generated using voice recognition software. It may contain grammatical, syntax o r spelling errors. Electronically signed by: Danie Bass M.D. 04/01/2023 5:59 PM
[2023-04-01] MEDS ORDERED: CLOPIDOGREL BISULFATE 75 MG TAB PO ONE (20:07)
--- NOTE | 2023-04-01 20:14 | Magnetic Resonance Report ---
MR brain wo con HISTORY: 62 years-old Female stroke symptoms acute stroke like symptoms COMPARISON: Head CT of same day TECHNIQUE: Multiplanar multisequence MRI of the brain was obtained without the use of IV contrast. FINDINGS: No restricted diffusion. Midline structures appear unremarkable. No acute intracranial hemorrhage, mi dline shift, abnormal extra-axial collection, hydrocephalus or intracranial mass. No pathologic sandy ing artifact on the T2*series. Mild patchy T2/FLAIR hyperintense foci throughout the white matter sug gestive of chronic microvascular ischemic disease. Cerebral venous sinuses and major arterial flow voids appear patent. Mild polypoid mucosal thickening of the left sphenoid and maxillary sinuses. Skull, orbits, soft tissues and mastoid air cells are un remarkable. IMPRESSION: No acute intracranial abnormality. No acute or subacute infarct. ACT 112: Negative or not required by law. The above report was generated using voice recognition software. It may contain grammatical, syntax o r spelling errors. Electronically signed by: Danie Bass M.D. 04/01/2023 8:12 PM
[2023-04-01] MEDS: FAMOTIDINE 20 MG TAB PO SCH (20:25)
--- NOTE | 2023-04-02 05:42 | Electrocardiogram Report ---
Test Reason : Blood Pressure : / mmHG Vent. Rate : 083 BPM Atrial Rate : 083 BPM P-R Int : 130 ms QRS Dur : 084 ms QT Int : 344 ms P-R-T Axes : 046 011 039 degrees QTc Int : 404 ms Normal sinus rhythm Nonspecific ST and T wave abnormality Abnormal ECG When compared with ECG of 22-FEB-2023 11:53, Premature ventricular complexes are no longer Present Confirmed by Alek Watts ([id number]) on 04/02/2023 5:42:15 AM Referred By: REFERRED SELF Confirmed By:Alek Watts
[2023-04-02 07:51] LABS: Hemoglobin 13.5 g/dl (12.0-16.0); Mean Corpuscular Hemoglobin 28.3 pg (25.0-34.0); Mean Corpuscular Hgb Conc 33.8 g/dL (32.0-36.0); Mean Corpuscular Volume 83.9 fL (80.0-100.0); Mean Platelet Volume 10.5 fL (9.4-12.4); Platelet Count 227 K/uL (130-400); RDW Coefficient of Variation 12.7 % (11.5-14.5); RDW Standard Deviation 38.5 fL (36.4-46.3); Red Blood Count 4.77 M/uL (4.20-5.40); White Blood Count 6.05 K/ul (4.8-10.8)
[2023-04-02 08:10] LABS: Calcium 8.7 mg/dl (8.6-10.3); Potassium 3.9 mmol/L (3.5-5.1)
[2023-04-02 08:16] LABS: BUN Creatinine Ratio 20.5 (10-20); Est GFR (African American) 102.3 ml/min; Est GFR (Non-African American) 88.3 ml/min
[2023-04-02 08:24] LABS: Estimated Average Glucose 123 mg/dl; Hemoglobin A1C 5.9 % (4.5-5.6)
[2023-04-02] MEDS ORDERED: ROSUVASTATIN CALCIUM 20 MG TAB PO SCH (09:00)
[2023-04-02] MEDS ORDERED: CLOPIDOGREL BISULFATE 75 MG TAB PO SCH (09:00)
[2023-04-02] MEDS ORDERED: FLUoxetine HCL 10 MG CAP PO SCH (09:00)
[2023-04-02] MEDS ORDERED: ASPIRIN 81 MG ECTAB PO SCH (09:00)
[2023-04-02] MEDS ORDERED: PANTOprazole 40 MG TAB PO SCH (09:00)
[2023-04-02] MEDS ORDERED: EZETIMIBE 10 MG TABLET PO SCH (09:00)
--- NOTE | 2023-04-02 09:20 | Cardiology Consultation ---
Date of Consultation April 02, 2023 Assessment & Plan (1) Anxiety: (2) Panic attack: (3) Palpitations: (4) Symptomatic PVCs: (5) Dyslipidemia, goal LDL below 70: Plan 1. Uncontrolled anxiety, panic attacks 2. Palpitations secondary to sensed ventricular ectopy. 3. Dyslipidemia with intolerance to rosuvastatin 10 mg/day. 4. Family history of CAD including premature CAD General measures advised. Patient reassured. Recommend staying well-hydrated, limiting caffeine, avoiding stimulants and decongestants. Aggressive risk factor and lifestyle modification recommended and discussed. Recommend Aspirin 81 mg/day; benefits, use, and risks explained. We agreed to a retrial of statin therapy with pravastatin 10 mg/day. Continue ezetimibe 10 mg/day. Recommend addition of beta-rita therapy, metoprolol succinate 25 mg/day. Outpatient Lexiscan nuclear stress testing as previously ordered. Outpatient cardiology follow-up. Supervising Physician Co-Signing Physician Notes Patient seen examined the bedside. Reports occasional palpitations described as skipped beats, and forceful heartbeats. She also notes paresthesias involving her left lower extremity and perioral region. No focal weakness, slurred speech, or facial asymmetry. Denies chest pain or unusual shortness of breath. Voices concern regarding family history of coronary disease as well as dyslipidemia. PE: VSS. Gen:NAD, AAOx3. Heart: Regular rhythm, normal S1-S2. No murmur. Lungs: Clear bilateral, no rales, rhonchi, wheeze. Extremities: No edema. A/P: Agree with above CHRYSTAL history, physical exam, assessment and plan. Patient reassured. Conservative measures discussed as noted above. Continue low-dose aspirin and Zetia. Low-dose aspirin and beta-rita added. Outpatient Lexiscan nuclear stress test scheduled. No further inpatient cardiac testing or intervention recommended at this time. Thank you for allowing me to participate in the care of your patient. History of Present Illness Reason for Consultation: Palpitations Requesting Physician: Kelly Attending Physician: Jose L History of Present Illness Mrs. Cristel Parra is a 62-year-old female who is being seen today at the request of Danita Mendoza PA-C. Reason for consultation is palpitations. Mrs. Parra notes having a longstanding history of anxiety dating back at least 24 years. She describes having her first panic attack while living in [place] 24 years ago. She describes feeling the bottom fall out, feeling faint, vomiting, shaking all over, and pressure in the chest. Notes previously seeing Dr. Carter and diagnosed with anxiety/panic attacks. Notes having a complete work-up initially and throughout the years with negative cardiac work-up including nuclear stress testing. Notes switching to Dr. Arshad a couple of years ago and trying various antidepressants as well as anxiolytics with poor tolerance including GI upset and/or confusion. Patient notes thinking about her strong family history of cardiac issues which tends to aggravate the issues and resulted in "big episodes." The night before last while lying in bed she had another big episode. Symptoms include feeling as though the bottom fell out, faint, sick in the stomach, vomiting, shaking all over, and this time numbness is started out in the ankle and worked his way up the leg as well as tingling in the fingers and numbness on the left side of the face. Notes being afraid to sleep at that time, eventually making her way to the hospital in the morning for further evaluation. Recent retrial of rosuvastatin caused recurrent joint pain and muscle pain. Past Medical and Surgical History: Generalized anxiety disorder Major depression Seasonal allergic rhinitis GERD Dyslipidemia Dental extraction Right rotator cuff surgery Family History: There with dementia. Father with CAD. Brother with an CO at 42. Older sister lived through an CO and now has CHF as well as an aneurysm. Mother sister with CAD and PAD status post bilateral amputation. [place] with CAD, CO. Brother Jw with CAD status post CO, PCI, now with lung cancer. Brother Al with CAD. Social History: Non-smoker. No smokeless tobacco. No alcohol swipe. . Grown children. Watches 3 grandchildren after preschool. Allergies Allergy/AdvReac Type Severity Reaction Status Date / Time bee venom protein (honey bee) Allergy Severe Anaphylaxis Verified 04/01/23 14:10 rosuvastatin AdvReac Unknown muscle Uncoded 04/01/23 20:02 aches Home Medications Medication Instructions Recorded Confirmed Type epinephrine 0.3 mg/0.3 mL 0.3 mg IM DIRECTED PRN Allergic 10/10/20 04/01/23 History injection, auto-injector (EpiPen) Reaction pantoprazole 40 mg tablet,delayed 40 mg PO QAM 10/10/20 04/01/23 History release diclofenac sodium 1 % topical gel 1 ea topical QID PRN Pain 04/01/23 04/01/23 History ezetimibe 10 mg tablet 10 mg PO QAM 04/01/23 04/01/23 History famotidine 20 mg tablet 20 mg PO BID 04/01/23 04/01/23 History fluoxetine 10 mg capsule 10 mg PO QAM 04/01/23 04/01/23 History fluticasone propionate 50 2 spray intranasal DAILY PRN 04/01/23 04/01/23 History mcg/actuation nasal allergies spray,suspension (Flonase Allergy Relief) meclizine 25 mg tablet 25 mg PO TID PRN Dizziness 04/01/23 04/01/23 History aspirin 81 mg tablet,delayed 81 mg PO QAM #30 tabs 04/02/23 Rx release metoprolol succinate 25 mg 25 mg PO QAM #30 tabs 04/02/23 Rx tablet,extended release 24 hr pravastatin 10 mg tablet 10 mg PO DAILY@1700 #30 tabs 04/02/23 Rx Patient History Medical History Anxiety Depression GERD (gastroesophageal reflux disease) History of colon polyps Hyperlipidemia Obesity Palpitations Surgical History History of colonoscopy History of esophagogastroduodenoscopy (EGD) History of tooth extraction Hx of repair of right rotator cuff Family History Mother Family history of reaction to anesthesia difficulty waking and low oxygen level with EGD procedure Coronary heart disease Sister Family history of diabetes mellitus Grandmother (Paternal) Family history of diabetes mellitus Father Sudden Brother Coronary heart disease Other Dyslipidemia Hypertension Social History Smoking Status: Never smoker Second Hand Exposure: Yes (parents smoked); Do You Dip or Chew Tobacco: No; Hx Alcohol Use: No Hx Substance Use: No Preferred Language: [place] Communication Ability: Effective Shift Supervisor Melting Required: No Beliefs That Will Affect Care: None Current Living Situation: Spouse Current Living Situation Comment: Lives with and daughter Feels Safe at Home: Yes Assistive Devices: None Review of Systems Review of Systems: Complete Review of Systems: Constitutional: No change in weight. No fevers. HEENT: No amaurosis fugax. Pulmonary: No history asthma or COPD Cardiac: See above. GI/Abd: No dysphagia. No melana or hematochezia. Denies liver problems. Denies kidney problems. Vascular: Denies carotid disease, AAA, or lower extremity claudication Hematologic: No coagulation disorder, anemia, or abnormal bleeding. Musculoskeletal: Arthritis. Skin: Negative. Neurologic: No history of seizure. Female : No dysuria or hematuria. Endocrine: Denies history of thyroid problems or diabetes. Complete Review of Systems is as stated above, negative, or noncontributory. Physical Exam Physical Exam: General: A&Ox3. Somewhat anxious though no acute distress. HEENT: Normocephalic. Atraumatic. Eyes: PER. Conjunctiva pink, sclera clear. Neck: No carotid bruits. No JVD. No HJR. Heart: RRR, 86 bpm. No murmur. No rub. No gallop. Lungs: Clear to auscultation. Abdomen: +BS. Soft. Nontender. No masses or organomegaly. Extremities: Minor healing wound to the right mid schultz. No clubbing, cyanosis, or significant edema. Limited neurological examination is without focal deficits. Pulses: radial=2/4, posterior tibial=2/4. Results & Data Vital Signs (Past 12 Hours) Vital Signs Temp Pulse Pulse Resp BP BP Pulse Ox 04/02/23 07:50 36.4 C L 72 18 134/75 96 04/02/23 07:17 62 04/01/23 22:00 75 04/02/23 03:25 36.6 C 80 18 115/73 97 04/01/23 23:18 36.4 C L 81 18 151/87 H 97 O2 Del Method 04/02/23 07:50 Room Air 04/02/23 07:17 04/01/23 22:00 04/02/23 03:25 Room Air 04/01/23 23:18 Room Air Laboratory Results Cardiac Enzymes 04/01/23 Range/Units 11:20 AST 13 (13-39) U/L Troponin I High Sens < 2.3 (0-14) pg/ml Lipids 04/02/23 Range/Units 06:40 Triglycerides 170 H (0-150) mg/dl Cholesterol 204 H (0-200) mg/dl HDL Cholesterol 41 mg/dl Cholesterol/HDL Ratio 5.0 (0-5) CBC 04/01/23 04/02/23 Range/Units 11:20 06:40 WBC 6.26 6.05 (4.8-10.8) K/ul RBC 4.94 4.77 (4.20-5.40) M/uL Hgb 14.0 13.5 (12.0-16.0) g/dl Hct 41.1 40.0 (37.0-47.0) % Plt Count 247 227 (130-400) K/uL Neut # (Auto) 3.72 (1.40-6.50) K/uL Lymph # (Auto) 2.07 (1.2-3.4) K/uL Lea # (Auto) 0.31 (0.11-0.59) K/uL Eos # (Auto) 0.09 (0-0.50) K/uL Baso # (Auto) 0.05 (0-0.2) K/uL Comprehensive Metabolic Panel 04/01/23 04/02/23 Range/Units 11:20 06:40 Sodium 140 140 (136-145) mmol/L Potassium 3.8 3.9 (3.5-5.1) mmol/L Chloride 107 106 (98-107) mmol/L Carbon Dioxide 25 26 (21-32) mmol/L BUN 13 15 (6-23) mg/dl Creatinine 0.68 0.73 (0.6-1.2) mg/dl Glucose 119 H 89 (70-99(Fasting)) mg/dl Calcium 9.2 8.7 (8.6-10.3) mg/dl AST 13 (13-39) U/L ALT 16 (7-52) U/L Alkaline Phosphatase 75 (34-104) U/L Total Protein 6.7 (6.0-8.3) gm/dl Albumin 4.1 (3.4-5.0) gm/dl Intake and Output 04/01/23 04/02/23 04/02/23 22:59 06:59 14:59 Intake Total 200 / 350 150 / 350 Balance 200 / 350 150 / 350 Intake: Oral 200 / 350 150 / 350 Other: Weight 92.3 kg Weight Measurement Method Standing Scale Diagnostic Findings Stress testing in December 2019: The stress echo is negative for inducible ischemia. No arrhythmias. Normal heart rate blood pressure response to exercise. Normal exercise tolerance for age. At rest, normal LV chamber size and wall thickness. Normal LV systolic function without regional wall motion abnormality, EF 55 to 60%. Grade 1 diastolic dysfunction. No significant valvular pathology. Palpitations documented during ZIO monitor in February 2023, correlating with sensed ventricular ectopy. Average heart rate during the monitored period was 89 bpm. Palpitations improved somewhat with reduction in caffeine intake. Notes intermittent issues with dehydration, limited water intake. February 2023 Zio Monitor: Patient had a min HR of 58 bpm, max HR of 162 bpm, and avg HR of 89 bpm. Predominant underlying rhythm was Sinus Rhythm. 2 Supraventricular Tachycardia runs occurred, the run with the fastest interval lasting 4 beats with a max rate of 162 bpm, the longest lasting 9 beats with an avg rate of 126 bpm. Isolated SVEs were rare (<1.0%), SVE Couplets were rare (<1.0%), and SVE Triplets were rare (<1.0%). Isolated VEs were occasional (1.3%, 09257), and no VE Couplets or VE Triplets were present. Ventricular Trigeminy was present. The patient recorded four event markers and 2 diary entries correlating with sensed ventricular ectopic beats. Impression: Sinus rhythm with mildly elevated average heart rate of 89 beats per minute with occasional ventricular ectopy EKG on March 26, 2023 personally reviewed, revealed sinus rhythm at 81 bpm with a short CO interval, high QRS voltage, may be a normal variant, or due to LVH. Possible old anterior infarct. QTc 401 ms. EKG on presentation, April 01, 2023, revealed normal sinus rhythm at 83 bpm with nonspecific STT wave abnormality. QTc 404 ms EKG this morning revealed normal sinus rhythm at 74 bpm High-sensitivity troponin I less than 2.3 pg/mL. CBC: Within normal limits. Chemistry panel within normal limits. Hemoglobin A1c 5.9%. Lipid panel demonstrated the following on April 02, 2023: Total cholesterol 204. LDL 129. HDL 41. Triglycerides 170. TSH OK. Extensive imaging obtained. Admission chest x-ray with no acute chest disease. Head CT with no acute intracranial abnormality. Brain MRI with no acute intracranial abnormality; no acute or subacute infarct. Carotid duplex with no hemodynamically significant stenosis or significant atherosclerotic plaquing. Normal antegrade vertebral flow noted bilaterally. Continuous telemetry monitoring reveals sinus/sinus tachycardia with occasional to frequent unifocal PVCs
[2023-04-02] MEDS: FAMOTIDINE 20 MG TAB PO SCH (09:31)
[2023-04-02] MEDS ORDERED: METOPROLOL SUCC 25MG EXT REL TAB PO SCH (10:00)
[2023-04-02] MEDS ORDERED: STROKE PATIENT DISCHARGE STA (13:15)
--- NOTE | 2023-04-02 13:15 | Discharge Summary ---
Date of Service April 02, 2023 Admission HPI Per Admitting Provider Patient is 62-year-old female with PMH dyslipidemia, anxiety, depression, GERD, obesity presented to ER with complaint of left-sided tingling that started last night. Patient reports ongoing intermittent palpitations. She reports they occur approximately once a day. States has palpitations with associated sharp mid chest pain and lightheadedness, nausea. States palpitations started last night around 11 PM with associated lightheadedness and nausea. She states she went to bed to try and rest. Patient states she stayed up all night watching the clock because she was fearful if she went to sleep she may . States around 2:30 AM started with tingling sensation to left side of face, left arm. Also complains of "heaviness" to left leg. She states she was able to walk without difficulty. Did not notice any left arm weakness. States fell asleep around 6 AM today. She reports when she woke up tingling sensation was pretty much resolved. Here in ER patient reports complete resolution of tingling to left face, arm and leg. Patient reports dull left-sided headache all day yesterday. Denies any current palpitations. Seen by cardiology 03/26/2023 for palpitations. Outpatient chart reviewed and patient had event monitor that showed predominant underlying rhythm was sinus rhythm with occasional ventricular ectopy and two SVT runs occurred, with the longest run lasting 9 beats. Patient was to be set up with nuclear stress test. Denies fever/chills, diaphoresis, diarrhea, constipation, syncope, vision changes, speech changes, facial drooping, neck pain, orthopnea, cough, sore throat, otalgia, rhinorrhea, abdominal pain, extremity weakness, extremity edema, rashes, urinary symptoms. Admission Exam Per Admitting Provider General: no distress, overweight Head: normocephalic, atraumatic Eyes: PERRL, EOM's intact, conjunctiva non-injected, anicteric ENT: normal inspection external ears, nose, mucous membranes moist Neck: supple, trachea midline Lungs: clear, no respiratory distress, no wheezing/rhonchi/rales CV: RRR, no murmur, no JVD, no pretibial edema Abd: normal BS, soft, non-tender Ext: no cyanosis, no calf tenderness Neuro: A&O x 3, slightly anxious affect. Visual reddy intact. PERRL, EOMs intact. No nystagmus, Facial sensation is intact and symmetric, The face is strong and symmetric, Hearing grossly intact, Soft palate elevates, symmetrically, no dysarthria, Shoulder shrug intact, Tongue is midline, normal movement, no fasciculations. Strength 5/5 throughout bilateral upper and lower extremities Skin: warm, dry Principal Diagnosis Palpitations Anxiety Dyslipidemia Prediabetes Discharge Exam Constitutional + well hydrated and + obese; no acute distress Eyes PERRL, conjunctivae normal, anicteric sclerae ENMT external ear and nose normal, oropharynx normal Respiratory normal respiratory effort, lungs clear to auscultation Cardiovascular Rate/Rhythm: regular rate and regular rhythm S1 S2 Gastrointestinal (Abdomen) normal bowel sounds, soft, nontender, no hepatosplenomegaly Musculoskeletal no cyanosis or clubbing, extremities motor strength 5/5 Neurologic patellar DTR's 2+ bilat, sensation intact and PERRL, EOMI, accommodation nl, no face palsy, no dysarthria Psychiatric A+Ox3, euthymic affect Discharge Data Allergies Allergy/AdvReac Type Severity Reaction Status Date / Time bee venom protein (honey bee) Allergy Severe Anaphylaxis Verified 04/01/23 14:10 rosuvastatin AdvReac Unknown muscle Uncoded 04/01/23 20:02 aches Consultations 04/01/23 13:30 ED Decision to Admit Stat 04/01/23 16:06 Consult Cardiology Routine Consult Neurology Routine Ordered Studies 04/01/23 12:02 CT head/brain wo con Stat 04/01/23 16:06 MR brain wo con Routine US carotid doppler BI Routine Hospital Course (1) Stroke-like symptoms: (2) Palpitations: (3) Hyperlipidemia: (4) Anxiety: (5) Depression: (6) GERD (gastroesophageal reflux disease): Continue PPI, Pepcid (7) Obesity: Plan 62-year-old female with PMH dyslipidemia, anxiety, depression, GERD, obesity presented to ER with complaint of left-sided facial tingling and LUE tingling, LLE heaviness that started last night around 2:30 AM. In ER vitals stable. No significant electrolyte abnormality. High sensitivity troponin negative. CT Head: No acute intracranial abnormality CXR: No acute chest disease In ER given 324mg aspirin MRI brain did not show any CVA. Hence stroke was ruled out Echo showed EF 60-65, borderline conc LVH Carotid doppler did not show any significant stenosis History of intermittent palpitations EKG: sinus rhythm, nonspecific ST changes Follows outpatient [facility] cardiology Recent event monitor that showed predominant underlying rhythm was sinus rhythm with occasional ventricular ectopy and two SVT runs occurred, with the longest run lasting 9 beats. Patient symptoms had resolved at time of admission Symptoms likely due to anxiety/panic attacks vs symptomatic PVC Cardiology evaluated and recommended starting metoprolol succinate 25mg daily HbA1c was 5.9. Hence Prediabetes. Patient educated on lifestyle modification, weight loss, diet, exercise Started on ASA 81mg daily Patient reported she had stopped rosuvastatin due to joint and muscle pain. Cardiology recommend trial of pravastatin 10mg daily Patient is to follow up with Cardiology outpatient. Outpaitent stress test scheduled Recommend following up with Psychiatry outpatient. She stated she is working on getting a Psychiatrist. Total Time Total Time Spent Total Time Spent (In Minutes): 35 Total Time Includes: Examination of the Patient, Discharge Planning, Medication Reconciliation and Communication With Other Providers Discharge Plan Discharge Items Patient Disposition: Home - Self-Care Reason For Visit: STROKE LIKE SYMPTOMS Discharge Diagnosis: Palpitations Anxiety Dyslipidemia Prediabetes Condition on Discharge: Good Activity: Resume your previous activity Non-emergency contact: Primary Care Provider and [employer] Call non-emergency contact if: you have any medication questions Follow-up/Referrals: Umesh Major DO [Primary Care Provider] - (Date & Time 04/07/2023 1:00 PM Provider Umesh Major DO Department Family Practice [facility] ) Hany Brown CRNP [Outside Practitioners] - (Date & Time 06/02/2023 9:00 AM Provider MARCO A [facility] Department Psychiatry, [facility] ) Diet: Heart Healthy Addtl Attending Provider Instructions: Mrs Parra You came to the hospital with chest pain, palpitation and left sided numbness which had resolved. You were evaluated with CT scan and MRI brain which did not show any strokes. You were evaluated by Cardiology and started on aspirin. You are being started on retrial of statin with pravastatin. Please ensure follow up with Cardiology for further evaluation. It was a pleasure taking care of you. Pending Studies at Discharge: No Stand-Alone Forms: [facility], Smoking Cessation Medications and DC Order Prescriptions: New aspirin 81 mg Tablet,Delayed Release (Dr/Ec) 81 mg PO QAM Qty: 30 0RF pravastatin 10 mg Tablet 10 mg PO DAILY@1700 Qty: 30 0RF metoprolol succinate 25 mg Tablet Extended Release 24 Hr 25 mg PO QAM Qty: 30 0RF Continued epinephrine [EpiPen] 0.3 mg/0.3 mL Auto-Injector 0.3 mg IM DIRECTED PRN (Reason: Allergic Reaction) pantoprazole 40 mg tablet,delayed release (DR/EC) 40 mg PO QAM Rx Instructions: TAKE 1 TABLET BY MOUTH EVERY MORNING famotidine 20 mg Tablet 20 mg PO BID meclizine 25 mg Tablet 25 mg PO TID PRN (Reason: Dizziness) fluoxetine 10 mg capsule 10 mg PO QAM Rx Instructions: New. Did not start yet. fluticasone propionate [Flonase Allergy Relief] 50 mcg/actuation [place],Suspension 2 spray INTRANASAL DAILY PRN (Reason: allergies) Rx Instructions: administer into each nostril ezetimibe 10 mg tablet 10 mg PO QAM Rx Instructions: filled 03/26/2023 but did not start yet. diclofenac sodium 1 % gel 1 ea TOPICAL QID PRN (Reason: Pain) Discontinued rosuvastatin 20 mg tablet 20 mg PO QAM Rx Instructions: does not take regularly d/t muscle aches Discharge Orders: Discharge Order (Routine); Ordered 04/02/23 Ordered By: Leticia Campos/Other Patient Handouts: ED Panic Attack, ED Symptoms With Uncertain Cause Admission Data Admit Date/Time: 04/01/23 13:51 Attending Provider: Leticia Domingo I. Admit Provider: Lu Montez Primary Care Provider: Umesh Major Other Providers: Lu Montez ; José Miguel Bryan ; Mart Brice Other Interventions: Discharge Summary Assessment (RN) Last Done: 04/02/23 13:27
[2023-04-02] MEDS ORDERED: PRAVASTATIN SOD 10 MG TAB PO SCH (17:00)
--- NOTE | 2023-04-03 05:35 | Electrocardiogram Report ---
Test Reason : Blood Pressure : / mmHG Vent. Rate : 074 BPM Atrial Rate : 074 BPM P-R Int : 130 ms QRS Dur : 084 ms QT Int : 370 ms P-R-T Axes : 049 006 044 degrees QTc Int : 410 ms Normal sinus rhythm Nonspecific ST and T wave abnormality When compared with ECG of 01-APR-2023 11:04, No significant change was found Confirmed by Alek Watts ([id number]) on 04/03/2023 5:35:00 AM Referred By: REFERRED SELF Confirmed By:Alek Watts
== END 2023-04-02 14:05 | disposition home or self-care (01) ==
LOC: 2N 10:50 → ED 10:50 → SUATTDRO 13:51 → 2N 15:57